=== PATIENT | female | born 1950 | race Caucasian/White ===

== ENCOUNTER → 2016-09-29 | Outpatient (CLI) | payer BC ==
[~2016-09-29] MED LIST: ASCO1CAP3 PO; CALC625T13 PO; CHOL100010 PO; CYAN10005 PO; DOCU100C PO; FEBU80TA PO; FLV400 PO; HYDR-5688 PO; IRON PO; LEVO112T4 PO; MAGN1TAB19 PO; POTA-327 PO; SERT50TA PO; SIMV10TA5 PO; THIA100T11 PO
[2016-09-29 12:21] LABS: MEAN CELL VOLUME 88.7 fL (80-100); MEAN CORPUSCULAR HEMOGLOBIN 29.1 pg (25-34); MEAN CORPUSCULAR HGB CONC 32.8 g/dl (32-36); MEAN PLATELET VOLUME 8.7 fL (7.4-10.4); PLATELET COUNT 214 K/uL (130-400); RED BLOOD COUNT 4.06 M/uL (4.2-5.4); WHITE BLOOD COUNT 3.94 K/uL (4.8-10.8)
[2016-09-29 12:39] LABS: BLOOD UREA NITROGEN 15 mg/dl (7-18); BUN/CREATININE RATIO 16.6 (10-20); CARBON DIOXIDE 26 mmol/L (21-32); CHLORIDE 107 mmol/L (98-107); CREATININE 0.91 mg/dl (0.60-1.20); GLUCOSE 92 mg/dl (70-99); SODIUM 143 mmol/L (136-145)
[2016-09-29 12:40] LABS: PHOSPHORUS 3.6 mg/dl (2.5-4.9)
== END | disposition home or self-care (01) ==
LOC: C.LABBFT 09:31
PROVIDERS: ATTEND Internal Medicine Nephrology
DX: I12.9 Hypertensive chronic kidney disease with stage 1 through stage 4 chronic kidney disease, or unspecified chronic kidney disease (principal); N18.3 Chronic kidney disease, stage 3 (moderate); R31.9 Hematuria, unspecified; N20.0 Calculus of kidney; E55.9 Vitamin D deficiency, unspecified

== ENCOUNTER → 2016-10-09 | Outpatient (CLI) | payer BC ==
[2016-10-09 11:02] LABS: MANUAL MICROSCOPIC REQUIRED? NO; URINE APPEARANCE CLEAR (CLEAR); URINE BILIRUBIN NEG (NEG); URINE COLOR YELLOW; URINE NITRITE NEG (NEG); URINE PH 5.5 (4.5-7.5); UROBILINOGEN NEG (NEG)
[2016-10-09 11:07] LABS: REVIEW REQ? NO
[2016-10-09 11:08] LABS: ZZUR CULT IF INDIC CLEAN CATCH NO
[2016-10-09 11:28] LABS: URINE PROTIEN/CREAT RATIO 0.1 (0-0.2); URINE TOTAL PROTEIN 11.2 mg/dl (0-11.9)
== END | disposition home or self-care (01) ==
LOC: C.LABSPEC 14:45
PROVIDERS: ATTEND Internal Medicine Nephrology
DX: I12.9 Hypertensive chronic kidney disease with stage 1 through stage 4 chronic kidney disease, or unspecified chronic kidney disease (principal); N18.3 Chronic kidney disease, stage 3 (moderate); R31.9 Hematuria, unspecified; N20.0 Calculus of kidney; E55.9 Vitamin D deficiency, unspecified

== ENCOUNTER → 2016-10-24 | Outpatient (CLI) | payer BC | END | disposition home or self-care (01) | LOC: C.MAMM 10:08 | PROVIDERS: ATTEND Family Medicine | DX: M79.605 Pain in left leg (principal); M10.9 Gout, unspecified; N20.0 Calculus of kidney; M85.88 Other specified disorders of bone density and structure, other site; M81.0 Age-related osteoporosis without current pathological fracture ==

== ENCOUNTER → 2017-01-05 | Outpatient (CLI) | payer BC ==
[2017-01-05 13:07] VITALS: BP 90/56; PULSE 72; TEMP 36.7; O2SAT 99
--- NOTE | 2017-01-05 16:33 | Radiation Oncology Follow-Up ---
Radiation Oncology Follow-Up Date of Visit January 05, 2017. 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 External beam treatment completed 05/26/2016 received 4500 cGy 3 HDR treatments at 400 cGy each completed 05/31/2016 Last Edited By: Masha Hernadez on May 16:32 History of Present Illness Ms. Matos is a 66-year-old female who is status post aortic valve replacement in 2009 at the [facility] for aortic stenosis. She suffered from obesity weighing over 400 pounds. She subsequently underwent a gastric bypass in 2013 and from the surgery dieting and post surgery dieting has lost over 200 pounds. The patient's periods stopped in 1999. More recently she started to have postmenopausal bleeding starting in March 2015. She was seen by Dr. Kinney at that time and had a transvaginal ultrasound on 04/16/2015. This showed a 7 mm endometrial stripe which was felt to be abnormally Ellis for postmenopausal female. In the office the attempted an endometrial biopsy but was unable to perform the procedure due to cervical stenosis. Dr. Kinney therefore planned for a EUA with D&C performed on 06/10/2015. This showed benign endocervical mucosa with no endometrial tissue identified and was negative for dysplasia and carcinoma. A second sample showed complex atypical endometrial hyperplasia without dysplasia or carcinoma. Case: [id number]. Patient was subsequently seen by Dr. Mejia in June 2015. He was discussing the possibility of a laparoscopic hysterectomy. However patient developed possible kidney stones and on 07/23/2015 CT scan of the abdomen and pelvis revealed a 5 mm right mid ureteral calculus resulting in mild right hydroureteronephrosis with moderate perinephric infiltration. There was bilateral nephrolithiasis and changes from the previous gastric bypass. The patient returned to see Dr. Mejia in October 2015. At that time without a diagnosis of cancer he was considering placing an IUD but was unable to do so in the office. He has suggested consideration of placement under anesthesia. However the patient returned to [place] where she was seen by Dr. Alvarado in December 2015. She suggested a second opinion and the patient was seen in referral by Dr. Cavazos. She was seen on 01/29/2016 in referral. He was concerned about the increased risk of an occult endometrial cancer and recommended removal of the uterus, tubes, ovaries and regional nodes if possible. The patient agreed and on 2015 underwent a robotic-assisted laparoscopic hysterectomy with bilateral salpingo-oophorectomy. Pathology confirmed an endometrioid adenocarcinoma FIGO grade 1. No definite mass or polyp was noted in the hysterectomy specimen. However microscopic examination of the entire endometrium revealed diffusely infiltrative endometrioid glands with focal cribriform formation in a background of complex atypical hyperplasia. The tumor invaded greater than 50% of the myometrium extending 9 mm through a myometrial thickness of 1.2 cm. There was evidence of focal lymphovascular invasion. There was no cervical involvement and no involvement of the right and left ovary or right and left fallopian tube. The final pathologic staging was therefore pT1B pNx FIGO grade 1. There was no loss of nuclear expression of the MMR proteins with a low probability of microsatellite instability. Patient has recovered well from her surgery. She did develop some postoperative abdominal pain. A CT scan from February 21 showed moderate mesenteric infiltration associated with small bowel loops within the left mid abdomen and a swirling appearance of the mesentery raising the possibility of an internal hernia status post gastric bypass. On 03/11/2016 she underwent a laparoscopic surgery at [facility] to repair a hernia in the small bowel. These symptoms have improved following surgery. Dr. Cavazos had arranged for us to see Ms. Matos in referral to discuss the role of adjuvant radiation. She completed radiation therapy 05/26/2016 with external beam treatments. She received 4500 cGy. She then completed a total 3 high-dose treatments at 400 cGy each. These were completed 05/31/2016. Interim History She's been doing well opacity 6 months. She denies any vaginal discharge or irritation. She's had no change in urination or bowel movements. She previously had difficulty with diarrhea following the treatment. This resolved without difficulty. She also had fatigue. She steadily improving 7 regards to her energy levels. She has had a problem with depression. She was started on Zoloft in September. The dosage has been adjusted. This has affected her energy levels also. She has a known history of iron deficiency anemia. She is currently at 45 mg a day. She stated if she uses higher doses she has constipation. She has had a mild rash under the panniculus. She's been using [id number] powder and wanted to have that checked today in case she needed a prescriptive medication. Allergies Coded Allergies: Allopurinol (Verified Allergy, Intermediate, DRUG FEVER?, 07/14/16) Ciprofloxacin (Verified Allergy, Intermediate, DRUG FEVER?, 07/14/16) Nitrofurantoin (Verified Allergy, Intermediate, RASH,NAUSEA, 07/14/16) Sulfa Antibiotics (Verified Allergy, Intermediate, RASH, NAUSEA, 07/14/16) Amoxicillin (Verified Allergy, Unknown, per PCP note, 07/14/16) Cephalexin (Verified Adverse Reaction, Mild, nausea, 07/14/16) Clindamycin (Verified Adverse Reaction, Unknown, G I UPSET, 07/14/16) Oxycodone (Verified Adverse Reaction, Unknown, HALLUCINATION, 07/14/16) Home Medications Scheduled Ascorbic Acid (Vitamin C), 1 CAP PO DAILY AT LUNCH Calcium Polycarbophil (Fiber Tabs), 2 TAB PO BID Cholecalciferol (Vitamin D), 2,000 INTER.UNIT PO DAILY AT LUNCH Cyanocobalamin (Vitamin B-12), 1,000 MCG PO DAILY AT LUNCH Docusate Sodium (Stool Softener), 1 CAP PO QAM Febuxostat (Uloric), 1 TAB PO QAM Folic Acid (Folic Acid), 800 MCG PO DAILY AT LUNCH Levothyroxine Sodium (Levothyroxine Sodium), 1 TAB PO QAM Magnesium Oxide (Mg Supplement (Magnesium Oxide), 400 MG PO DAILY AT LUNCH Potassium Ext Rel (Klor-Con), 10 MEQ PO QAM Sertraline (Zoloft), 1 TAB PO HS Simvastatin (Zocor), 10 MG PO QPM Thiamine Hcl (Vitamin B-1), 100 MG PO DAILY AT LUNCH [Iron ], 45 MG PO DAILY AT LUNCH Review of Systems Gastrointestinal: Symptoms: WNL GI Comments: Daily Stool Softener Oral: Symptoms: No Problems Respiratory: Symptoms: WNL Urinary: Symptoms: WNL Comments: Currently doctoring for bilateral multiple kidney stones;3 voids/ night Skin: Symptoms: No Problems Other Skin Symptoms: See below notations; Physical Exam Vital Signs Date Time Temp Pulse Resp B/P Pulse Ox O2 Delivery O2 Flow Rate FiO2 01/05/17 13:07 36.7 72 16 90/56 99 Fatigue: None General Appearance: no apparent distress Eyes: normal inspection, EOMI ENT: normal ENT inspection, hearing grossly normal Respiratory/Chest: lungs clear, no respiratory distress Cardiovascular: regular rate, rhythm, no gallop, + systolic murmur (2/ 6 heard best at the aortic area.) Abdomen: non tender, soft, + pertinent finding (large panniculus. The well- demarcated area of erythema in the groin appears dry. Pallor is in place. There is no current areas that are open.) Genitourinary - Female: Normal external genitalia. Vaginal examination reveals no visible lesions of the vagina. Bimanual examination reveals no palpable lesions of the vagina. No tenderness or palpable masses of the lower quadrants. There is no vaginal discharge or irritation. There is no telangiectasia or induration of the vagina. Anal / Rectum: Normal sphincter tone. No rectal masses no rectal bleeding. Extremities: no pedal edema Neurologic/Psychiatric: no motor/sensory deficits, alert, normal mood/affect Skin: warm/dry Laboratory Studies Test 10/09/16 08:47 Urine Color YELLOW Urine Appearance CLEAR (CLEAR) Urine pH 5.5 (4.5-7.5) Urine Specific [place] 1.020 (1.000-1.030) Urine Protein NEG (NEG) Urine Glucose (UA) NEG (NEG) Urine Ketones NEG (NEG) Urine Occult Blood NEG (NEG) Urine Nitrite NEG (NEG) Urine Bilirubin NEG (NEG) Urine Urobilinogen NEG (NEG) Urine Leukocyte Esterase NEG (NEG) Urine Random Creatinine 99.0 mg/dl Urine Random Total Protein 11.2 mg/dl (0-11.9) Urine Protein/Creatinine Ratio 0.1 (0-0.2) Assessment & Plan Plan: Continue regular follow-up with her primary care physician. She will use [id number] powder which is working well for the skin irritation of the panniculus. She will be seeing Dr. Cavazos 02/20/2017. She also plans to continue follow-up with Dr. Alvarado. We asked her to return to our office in 1 year. She may call if she has any questions or concerns in the interim. Total Time In Follow-Up I spent 20 minutes speaking to the patient and performing examination. I spent 15 minutes reviewing information in completing this note. Copy To Korin Mcneal D.O.; Sharonda Alvarado M.D.; Berny Cavazos M.D.
== END | disposition home or self-care (01) ==
LOC: C.ONC 12:59
PROVIDERS: ATTEND Physician Assistant Medical
DX: Z08 Encounter for follow-up examination after completed treatment for malignant neoplasm (principal); Z92.3 Personal history of irradiation; Z85.42 Personal history of malignant neoplasm of other parts of uterus

== ENCOUNTER → 2017-03-20 | Outpatient (CLI) | payer BC ==
[~2017-03-20] MED LIST changes: -HYDR-5688 PO
--- NOTE | 2017-03-20 13:14 | DIAGNOSTIC IMAGING REPORT ---
KUB HISTORY: 66 years-old Female UNSPECIFIED ABDOMINAL PAIN COMPARISON: KUB 07/14/2017 TECHNIQUE: KUB radiograph FINDINGS: There is a linear 6 mm density within the right midabdomen with adjacent 4 mm foci also seen. This may reflect nephrolithiasis or colonic stool 3. No calculi are seen within the region of the left kidney or ureters. Anastomotic suture material seen within the left abdomen. Cholecystectomy clips are seen. Median sternotomy wires also noted. Bowel gas pattern is nonobstructive. Severe multilevel degenerative changes of the spine are seen. No fracture identified. IMPRESSION: 1. Several linear Densities in the right midabdomen measuring up to 6 mm favor colonic stool debris, however nephrolithiasis could have a similar appearance. No calculi are seen along the course of either ureter. 2. Nonobstructive bowel gas pattern. The above report was generated using voice recognition software. It may contain grammatical, syntax or spelling errors. Electronically signed by: Vicente Nava M.D. 03/20/2017 1:13 PM Dictated Date/Time: 03/20/2017 1:10 PM
== END | disposition home or self-care (01) ==
LOC: C.RAD 12:44
PROVIDERS: ATTEND Family Medicine
DX: R10.9 Unspecified abdominal pain (principal)

== ENCOUNTER → 2017-04-07 | Outpatient (CLI) | payer BC ==
--- NOTE | 2017-04-07 12:34 | DIAGNOSTIC IMAGING REPORT ---
KUB HISTORY: 66 years-old Female acute flank pain with history of kidney stones. COMPARISON: KUB 03/20/2017 TECHNIQUE: KUB radiograph FINDINGS: There are approximately 3 calcifications measuring up to 3 mm within the region of the right kidney suggesting calculi. No ureteral calculi or definite left-sided nephrolithiasis identified. Surgical clips are seen within the right upper abdomen with surgical suture material within the left mid abdomen. Bowel gas pattern is nonobstructive. Severe multilevel degenerative changes of the spine are seen. 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 The bones are mildly demineralized throughout. IMPRESSION: 1. Right-sided nephrolithiasis without evidence of ureteral calculi. 2. Nonobstructive bowel gas pattern. The above report was generated using voice recognition software. It may contain grammatical, syntax or spelling errors. Electronically signed by: Vicente Nava M.D. 04/07/2017 12:33 PM Dictated Date/Time: 04/07/2017 12:27 PM
[2017-04-07 13:16] LABS: URINE APPEARANCE CLEAR (CLEAR); URINE BILIRUBIN NEG (NEG); URINE COLOR YELLOW; URINE EPITHELIAL CELL AUTO 0-5 /lpf (0-5); URINE NITRITE NEG (NEG); URINE SPECIFIC GRAVITY 1.016 (1.000-1.030); UROBILINOGEN NEG (NEG)
[2017-04-07 13:21] LABS: HEMATOCRIT 33.2 % (37-47); MEAN CORPUSCULAR HEMOGLOBIN 29.9 pg (25-34); MEAN CORPUSCULAR HGB CONC 32.8 g/dl (32-36); MEAN PLATELET VOLUME 8.1 fL (7.4-10.4); PLATELET COUNT 284 K/uL (130-400); RED BLOOD COUNT 3.65 M/uL (4.2-5.4); WHITE BLOOD COUNT 2.91 K/uL (4.8-10.8)
[2017-04-07 13:22] LABS: MANUAL MICROSCOPIC REQUIRED? NO; REVIEW REQ? NO
[2017-04-07 14:08] LABS: URINE PROTIEN/CREAT RATIO 0.1 (0-0.2); URINE TOTAL PROTEIN 7.2 mg/dl (0-11.9)
[2017-04-07 14:08] LABS: BLOOD UREA NITROGEN 11 mg/dl (7-18); BUN/CREATININE RATIO 13.4 (10-20); CALCIUM 8.8 mg/dl (8.5-10.1); CARBON DIOXIDE 25 mmol/L (21-32); CHLORIDE 107 mmol/L (98-107); CREATININE 0.79 mg/dl (0.60-1.20); GLUCOSE 96 mg/dl (70-99); PHOSPHORUS 3.6 mg/dl (2.5-4.9); POTASSIUM 4.1 mmol/L (3.5-5.1); SODIUM 138 mmol/L (136-145)
== END | disposition home or self-care (01) ==
LOC: C.RAD 11:34
PROVIDERS: ATTEND Urology
DX: N20.0 Calculus of kidney (principal); I12.9 Hypertensive chronic kidney disease with stage 1 through stage 4 chronic kidney disease, or unspecified chronic kidney disease; N18.3 Chronic kidney disease, stage 3 (moderate); E55.9 Vitamin D deficiency, unspecified

== ENCOUNTER → 2017-05-02 | Outpatient (CLI) | payer BC ==
--- NOTE | 2017-05-04 07:39 | MAMMOGRAPHY REPORT ---
BILATERAL DIGITAL SCREENING MAMMOGRAM WITH CAD: 05/02/2017 CLINICAL HISTORY: Routine screening. Patient has no complaints. TECHNIQUE: Bilateral CC and MLO views were obtained. Current study was also evaluated with a Compute r Aided Detection (CAD) system. COMPARISON: Comparison is made to exams dated: 04/25/2016 mammogram, 04/23/2015 mammogram, 04/16/2014 m ammogram, and 08/23/2011 mammogram - [facility]. BREAST COMPOSITION: There are scattered areas of fibroglandular density in both breasts. FINDINGS: There are scattered stable benign-appearing round microcalcifications bilaterally. No susp icious mass, architectural distortion or cluster of microcalcifications is seen. IMPRESSION: ACR BI-RADS CATEGORY 1: NEGATIVE There is no mammographic evidence of malignancy. A 1 year screening mammogram is recommended. The pa tient will receive written notification of the results. Approximately 10% of breast cancers are not detected with mammography. A negative mammographic report should not delay biopsy if a clinically suggestive mass is present. Chelsey Green M.D. ay/:05/02/2017 10:29:39 Remedial Project Manager: Elsa Luna RT(R)(M)(BD), [facility] letter sent: Normal 1/2 BI-RADS Code: ACR BI-RADS Category 1: Negative
== END | disposition home or self-care (01) ==
LOC: C.MAMM 09:42
PROVIDERS: ATTEND Obstetrics & Gynecology
DX: Z12.31 Encounter for screening mammogram for malignant neoplasm of breast (principal)

== ENCOUNTER → 2017-12-15 | Outpatient (CLI) | payer BC ==
[2017-12-15 10:08] LABS: BASO % 0.7 %; BASO ABS # 0.03 K/uL (0-0.2); EOS % 2.2 %; EOS ABS # 0.09 K/uL (0-0.5); HEMATOCRIT 36.8 % (37-47); HEMOGLOBIN 12.1 g/dL (12.0-16.0); IG# 0.01 K/uL (0.00-0.02); LYMPH % 24.4 %; LYMPH ABS # 0.98 K/uL (1.2-3.4); MEAN CELL VOLUME 90.4 fL (80-100); MEAN CORPUSCULAR HEMOGLOBIN 29.7 pg (25-34); MEAN CORPUSCULAR HGB CONC 32.9 g/dl (32-36); NEUT % 62.5 %; NEUT ABS # 2.51 K/uL (1.4-6.5); PLATELET COUNT 198 K/uL (130-400); RED CELL DISTRIBUTION WIDTH CV 12.7 % (11.5-14.5); RED CELL DISTRIBUTION WIDTH SD 41.7 fL (36.4-46.3); WHITE BLOOD COUNT 4.02 K/uL (4.8-10.8)
[2017-12-15 10:34] LABS: ALBUMIN 3.1 gm/dl (3.4-5.0); ALT/SGPT 21 U/L (12-78); AST/SGOT 20 U/L (15-37); BLOOD UREA NITROGEN 22 mg/dl (7-18); CALCIUM 9.3 mg/dl (8.5-10.1); CARBON DIOXIDE 29 mmol/L (21-32); GLUCOSE 113 mg/dl (70-99); POTASSIUM 4.1 mmol/L (3.5-5.1); SODIUM 139 mmol/L (136-145)
[2017-12-15 10:44] LABS: ALKALINE PHOSPHATASE 80 U/L (45-117); TOTAL PROTEIN 6.2 gm/dl (6.4-8.2)
--- NOTE | 2017-12-15 10:51 | DIAGNOSTIC IMAGING REPORT ---
ULTRASOUND OF THE CAROTID ARTERIES CLINICAL HISTORY: G45.3 AMAUROSIS FUGAX COMPARISON STUDY: None. TECHNIQUE: Real-time, grayscale, and color Doppler sonography of the carotid arteries was performed. Imaging reviewed in the transverse and longitudinal planes. NASCET criteria was utilized for stenosis calcification. FINDINGS: There is minor atherosclerotic plaque present . The peak systolic velocity within the right internal carotid artery is 117 cm/sec. The systolic velocity ratio of right internal to common carotid artery is 1.6. The peak systolic velocity within the left internal carotid artery is 85 cm/sec. The systolic velocity ratio left internal to common carotid artery is 1. Antegrade flow is seen in the vertebral arteries. The external carotid arteries are patent. Blood pressure in the right arm measured 107 mm/Hg. Blood pressure in the left arm measured 94 mm/Hg. IMPRESSION: No evidence of hemodynamically significant carotid stenosis. Electronically signed by: Jaspal Richardson M.D. 12/15/2017 10:50 AM Dictated Date/Time: 12/15/2017 10:49 AM
== END | disposition home or self-care (01) ==
LOC: C.ULTR 09:23
PROVIDERS: ATTEND Family Medicine
DX: M65.30 Trigger finger, unspecified finger (principal); M1A.9XX0 Chronic gout, unspecified, without tophus (tophi); M53.3 Sacrococcygeal disorders, not elsewhere classified; L85.9 Epidermal thickening, unspecified; N18.9 Chronic kidney disease, unspecified; E03.9 Hypothyroidism, unspecified; G45.3 Amaurosis fugax

== ENCOUNTER → 2018-01-01 | Outpatient (CLI) | payer BC ==
[2018-01-01 12:09] LABS: HEMATOCRIT 37.8 % (37-47); HEMOGLOBIN 12.7 g/dL (12.0-16.0); MEAN CELL VOLUME 89.2 fL (80-100); MEAN CORPUSCULAR HGB CONC 33.6 g/dl (32-36); MEAN PLATELET VOLUME 8.1 fL (7.4-10.4); PLATELET COUNT 222 K/uL (130-400); RED CELL DISTRIBUTION WIDTH CV 12.6 % (11.5-14.5); RED CELL DISTRIBUTION WIDTH SD 40.9 fL (36.4-46.3); WHITE BLOOD COUNT 3.58 K/uL (4.8-10.8)
[2018-01-01 12:22] LABS: ALBUMIN 3.6 gm/dl (3.4-5.0); AST/SGOT 25 U/L (15-37); BLOOD UREA NITROGEN 13 mg/dl (7-18); CARBON DIOXIDE 32 mmol/L (21-32); CREATININE 1.06 mg/dl (0.60-1.20); GLUCOSE 116 mg/dl (70-99); SODIUM 139 mmol/L (136-145)
[2018-01-01 12:25] LABS: ALKALINE PHOSPHATASE 86 U/L (45-117); ALT/SGPT 27 U/L (12-78); TOTAL PROTEIN 6.8 gm/dl (6.4-8.2); URIC ACID 3.8 mg/dl (2.6-7.2)
== END | disposition home or self-care (01) ==
LOC: C.LAB 10:23
PROVIDERS: ATTEND Internal Medicine Nephrology
DX: I12.9 Hypertensive chronic kidney disease with stage 1 through stage 4 chronic kidney disease, or unspecified chronic kidney disease (principal); N18.3 Chronic kidney disease, stage 3 (moderate); D64.9 Anemia, unspecified; N20.0 Calculus of kidney; R31.29 Other microscopic hematuria; E55.9 Vitamin D deficiency, unspecified

== ENCOUNTER → 2018-03-22 | Outpatient (CLI) | payer BC ==
[~2018-03-22] MED LIST changes: -ASCO1CAP3 PO; -CALC625T13 PO; -SIMV10TA5 PO; -THIA100T11 PO
[2018-03-22 14:27] LABS: HEMATOCRIT 34.4 % (37-47); HEMOGLOBIN 11.3 g/dL (12.0-16.0); MEAN CELL VOLUME 88.2 fL (80-100); MEAN CORPUSCULAR HGB CONC 32.8 g/dl (32-36); MEAN PLATELET VOLUME 8.1 fL (7.4-10.4); PLATELET COUNT 212 K/uL (130-400); RED CELL DISTRIBUTION WIDTH CV 12.6 % (11.5-14.5); RED CELL DISTRIBUTION WIDTH SD 40.6 fL (36.4-46.3); WHITE BLOOD COUNT 3.97 K/uL (4.8-10.8)
[2018-03-22 14:35] LABS: BLOOD UREA NITROGEN 14 mg/dl (7-18); CALCIUM 8.9 mg/dl (8.5-10.1); CARBON DIOXIDE 27 mmol/L (21-32); CREATININE 0.95 mg/dl (0.60-1.20); GLUCOSE 107 mg/dl (70-99); POTASSIUM 4.5 mmol/L (3.5-5.1); SODIUM 135 mmol/L (136-145)
== END | disposition home or self-care (01) ==
LOC: C.CPL 07:06
PROVIDERS: ATTEND Orthopaedic Surgery
DX: Z01.812 Encounter for preprocedural laboratory examination (principal); Z85.42 Personal history of malignant neoplasm of other parts of uterus; Z01.810 Encounter for preprocedural cardiovascular examination

== ENCOUNTER → 2018-04-01 | Outpatient (CLI) | payer BC ==
--- NOTE | 2018-04-01 14:03 | DIAGNOSTIC IMAGING REPORT ---
KUB CLINICAL HISTORY: MICROSCOPIC HEMATURIA nephrocalcinosis COMPARISON STUDY: 04/07/2017 FINDINGS: Several small lower pole right renal calcifications unchanged. No new or interval calcifications. Nonobstructive bowel pattern. Degenerative change of the lumbar spine and bony pelvis. IMPRESSION: Unchanged lower pole right renal calcifications. Nonobstructive bowel pattern. No significant change from the prior study. The above report was generated using voice recognition software. It may contain grammatical, syntax or spelling errors. Electronically signed by: Saleem Michaels M.D. 04/01/2018 2:02 PM Dictated Date/Time: 04/01/2018 2:00 PM
== END | disposition home or self-care (01) ==
LOC: C.RAD 13:36
PROVIDERS: ATTEND Urology
DX: N20.0 Calculus of kidney (principal)

== ENCOUNTER → 2018-04-09 | Day surgery (SDC) | payer BC ==
[2018-03-06 14:13] VITALS: BMI 42.0
--- NOTE | 2018-03-22 10:05 | PAT Medication Instructions ---
Service Date Mar 22, 2018. Current Home Medication List Cholecalciferol (Vitamin D), 2,000 INTER.UNIT PO DAILY AT LUNCH Cyanocobalamin (Vitamin B-12), 1,000 MCG PO DAILY AT LUNCH Docusate Sodium (Stool Softener), 1 CAP PO QAM Febuxostat (Uloric), 1 TAB PO QAM Folic Acid (Folic Acid), 800 MCG PO DAILY AT LUNCH Levothyroxine Sodium (Levothyroxine Sodium), 1 TAB PO QAM Magnesium Oxide (Mg Supplement (Magnesium Oxide), 400 MG PO DAILY AT LUNCH Potassium Ext Rel (Klor-Con), 10 MEQ PO QAM Sertraline (Zoloft), 0.5 TAB PO QPM [Iron ], 45 MG PO DAILY AT LUNCH Medication Instructions For Your Scheduled Surgery - Hold the following medications the morning of surgery: [Iron ], 45 MG PO DAILY AT LUNCH Magnesium Oxide (Mg Supplement (Magnesium Oxide), 400 MG PO DAILY AT LUNCH Potassium Ext Rel (Klor-Con), 10 MEQ PO QAM Febuxostat (Uloric), 1 TAB PO QAM Folic Acid (Folic Acid), 800 MCG PO DAILY AT LUNCH Cholecalciferol (Vitamin D), 2,000 INTER.UNIT PO DAILY AT LUNCH Cyanocobalamin (Vitamin B-12), 1,000 MCG PO DAILY AT LUNCH Docusate Sodium (Stool Softener), 1 CAP PO QAM - Take the following medications the morning of surgery with a sip of water: Levothyroxine Sodium (Levothyroxine Sodium), 1 TAB PO QAM - Take the following medications as scheduled the night before surgery: Sertraline (Zoloft), 0.5 TAB PO QPM If you have any questions please call us at [phone] or [phone] or [phone]
[2018-03-22 13:11] VITALS: Ht 154.9 cm; Wt 101.9 kg
[~2018-04-09] VITALS: Ht 154.9 cm; Wt 101.9 kg
[~2018-04-09] MED LIST changes: +ATROPINE SULFATE 0.1 MG/ML 5ML SYR IV PRN; +BUPIVACAINE 0.5 % 5 MG/1 ML PF 10ML VIAL ONE; +BUPIVACAINE/EPINEPHRINE 0.5% MPF 1:200,000 30 ML VIAL ONE; +CEFAZOLIN 2000MG IV PUSH 15 ML IV SCH; +CEFAZOLIN SOD 2000MG/15 ML IV PUSH ONE; +EpHEDrine SULFATE INJ 50 MG/ML AMP IV PRN; +FENTANYL CITRATE INJ 50 MCG/1 ML 2 ML VIAL IV PRN; +FENTANYL CITRATE INJ 50 MCG/1 ML 2 ML VIAL ONE; +FLUMAZENIL 0.1 MG/1 ML 10 ML VIAL IV ONE; +LACTATED RINGER'S 1000ML 1,000 ML IV SCH; +LIDOCAINE HCL 1% 20 ML VIAL ONE; +LIDOCAINE HCL 2% 2 ML VIAL (20MG/ML) ONE; +METOCLOPRAMIDE HCL INJ 5 MG/ML 2 ML VIAL IV PRN; +MIDAZOLAM HCL 1 MG/ML 2ML VIAL ONE; +NURSING VERBAL MED ORDER ONE; +ONDANSETRON INJ 2 MG/ML 2 ML VIAL IV PRN; +ONDANSETRON INJ 2 MG/ML 2 ML VIAL ONE; +PROPOFOL IV EMULSION 10 MG/ML 20 ML VIAL ONE; +SODIUM CHLORIDE 0.9% 1000ML 1,000 ML IV SCH; +TRAMADOL HCL 50 MG TAB PO PRN
--- NOTE | 2018-04-09 12:51 | History & Physical Bridge - SC ---
H&P Re-Evaluation Bridge Note: I have examined the patient, reviewed the History & Physical and in the interval since the performance of the History & Physical I have noted the following changes of clinical significance: No changes noted
--- NOTE | 2018-04-09 13:46 | [facility] Post Operative Brief Note ---
Immediate Operative Summary Operative Date Apr 09, 2018. Pre-Operative Diagnosis Right long and ring triggered fingers Post-Operative Diagnosis Right long and ring triggered fingers Procedure(s) Performed Right Long And Ring Trigger Finger Releases Surgeon Dr. Chandler Cortez Ladle Handler Surgeon(s) Mario Bassett PA-C Estimated Blood Loss 1ml Findings Consistent with Post-Op Diagnosis Fluids (cc crystalloids) 400 cc Specimens None per surgeon Drains None Anesthesia Type MAC Complication(s) none Disposition Accompanied Pt To Recover: no Disposition: Recovery Room / PACU
--- NOTE | 2018-04-09 13:49 | [facility] Operative Report ---
Operative Report Operative Date Apr 09, 2018. Pre-Operative Diagnosis Right long and ring triggered fingers Post-Operative Diagnosis Right long and ring triggered fingers Procedure(s) Performed Right Long And Ring Trigger Finger Releases Surgeon Dr. Chandler Cortez Home Care Rn Surgeon(s) Mario Bassett PA-C Estimated Blood Loss 1ml Fluids 400 cc Specimens None per surgeon Drains None Anesthesia Type MAC Complication(s) none Disposition no Recovery Room / PACU Description of Procedure I was present during the entire case and assisted with wound closure and dressing application. Please see Dr. Cortez procdured notes for specifics of the case. I attest to the content of the Intraoperative Record and any orders documented therein. Any exceptions are noted below.
[2018-04-09 13:51] VITALS: TEMP 36.8
--- NOTE | 2018-04-09 13:52 | Discharge Instructions ---
Discharge Instructions Date of Service Apr 09, 2018. Admission Reason for Admission: Right Long And Ring Triffer Fingers Discharge Discharge Diagnosis / Problem: Right long and ring trigger digits Discharge Goals Goal(s): Decrease discomfort, Improve function, Increase independence Activity Recommendations Activity Limitations: as noted below Lifting Limitations: none Exercise/Sports Limitations: none May Resume Sexual Activity: when tolerated Shower/Bathe: tomorrow, keep incision dry Driving or Machine Use: resume 3 days after discharge Weightbearing Status: Right weightbearing (as tolerated) . Instructions / Follow-Up Instructions / Follow-Up Post-operative Instructions Dear Patient and Family/Friends, Before you are discharged from the hospital, it is important to know what to expect when you get home after surgery. To that end, we have created this sheet of discharge instructions which covers many commonly asked questions. Make sure you go through this sheet in its entirety with your nurse before you are discharged. Please note that we will go over the specifics of your surgery and recovery when you return for your first post-operative visit. Sincerely, Dr. Cortez Pain Expect to be in a fair amount of pain after surgery. Remember, our goal is not to eliminate your pain, but to make it tolerable. It is a good idea to stay ahead of your pain by taking the medications you were prescribed once you get home. Typically, the pain starts improving 3-7 days after surgery. You should start weaning off the narcotic pain medication (oxycodone, hydrocodone, hydromorphone, morphine) as soon as your pain improves. Please call our office if your pain is not adequately controlled. Ice Ice your operative site at least 5 times a day for 15-30 minutes at a time. Make sure you have a thin cloth between the ice or cooling unit and your skin to prevent mendoza bite. This is especially important if you received a nerve block. Continue icing your operative site for the first 5-7 days after surgery , then as needed. Diet/Nausea/Vomiting Start by drinking clear liquids and eating crackers. If you can tolerate this, then you may resume your normal diet. If you feel nauseated or vomit, take Zofran/ondansetron (if prescribed). Please call our office if you have intractable nausea or vomiting, or, if after hours, you may go to the Emergency Room for help. Constipation Constipation is a common side effect of narcotic pain medication. If you have not had a bowel movement within 2 days after surgery, we recommend purchasing an over the counter laxative such as Milk of Magnesia, Dulcolax, or Miralax from a local pharmacy, and taking it as instructed. Call our clinic if any questions. Weight bearing and Range of Motion. Do not bear any weight through your operative extremity immediately after surgery. If you had upper extremity surgery, do not lift anything with that arm. If you are in a knee brace, keep it locked in place until your follow-up. We will discuss your weight bearing, range of motion, and lifting restrictions in detail at your first post-operative appointment. Continuous Passive Motion (CPM) Machine If you were prescribed a CPM machine, it will start after your first post- operative appointment, at which time we will give you instructions on the range of motion settings and duration of treatment Physical therapy You will be given a prescription for physical therapy or occupational therapy at your first post-operative appointment. Typically, patients start therapy within 1 week of surgery Wound care and showering We will inspect your wound at your first post-operative visit, and may do a dressing change at that time. Most patients will be in a water-proof dressing that is removed 14 days after surgery. It is normal to see some dried blood on the dressing. Do not remove your dressing, paper strips or sutures yourself unless you are given permission. Showering is allowed the day after surgery. Do not scrub or remove any dressings. The wound should not be submerged underwater (i.e. in a bathtub or pool) until 4 weeks after surgery MIMI stockings If you were given white stockings, these are to be worn at all times except to shower (on both legs) for the first 2 weeks after surgery. Driving You may not drive while taking narcotic pain medication or while in a cast, splint, sling or brace. You, the patient, need to make the final determination about when you are safe to drive, however, the earliest you may consider driving after surgery is below: Hand/Wrist/Elbow Surgery: 3 days Shoulder Surgery: 2 weeks Hip,/Knee/Ankle Surgery: 4 weeks Fracture repair: 6 weeks Return to Work Your return to work depends on what surgery was done and what type of work you do. Please bring any paperwork your employer needs completed to your first post -operative visit. Also, bring a description of your job duties, as this helps us to understand what risks you may face at work. Travel Avoid long distance travel (greater than 1 hour) in airplanes and cars for the first 6 weeks after surgery. If you must travel, you need to have a Doppler ultrasound done before you travel to rule out a blood clot in your legs. Follow-up You should have a follow-up appointment already scheduled 1-2 days after surgery. If not, please contact our office to make this appointment before you leave the hospital. When to call the office It is normal to have swelling and bruising in the limb that was operated on. This will improve with time. It is also normal to have fevers for the first 2 days after surgery. Reasons you should call your doctor include: Uncontrolled pain; Nausea, vomiting, or constipation that does not improve with medication; Fevers over 101.5, chills, sweats; Drainage or bleeding from the wound; Foul odor; Spreading areas of redness; Any other concerns Current Hospital Diet Patient's current hospital diet: Discharge Diet Recommended Diet: Regular Diet Procedures Procedures Performed: Right Long And Ring Trigger Finger Releases Pending Studies Studies pending at discharge: no Medical Emergencies . Who to Call and When: Medical Emergencies: If at any time you feel your situation is an emergency, please call 911 immediately. . Non-Emergent Contact Non-Emergency issues call your: Primary Care Provider Call Non-Emergent contact if: you have a fever, temperature is above 101.5, your pain is not controlled, your pain is worsening, wound has increased drainage, you have any medication questions . "Provider Documentation" section prepared by Mario Bassett. . [place] Drug Monitoring Program Search Results: patient reviewed within database, no issues identified, see additional documentation
[2018-04-09 14:11] VITALS: BP 110/63; PULSE 65; O2SAT 99
--- NOTE | 2018-04-09 14:15 | Anesthesia Progress Nt - [facility] ---
Anesthesia Post Op Note Date & Time Apr 09, 2018 at 14:14 Vital Signs Pain Intensity: 0 Vital Signs Past 12 Hours Date Time Temp Pulse Resp B/P (MAP) Pulse Ox O2 Delivery O2 Flow Rate FiO2 04/09/18 14:11 65 20 110/63 (79) 99 Room Air 04/09/18 13:51 36.8 78 16 100/53 (69) 96 Room Air 04/09/18 12:04 36.2 78 20 117/69 (85) 97 Room Air Notes Mental Status: alert / awake / arousable, participated in evaluation Nausea / Vomiting: adequately controlled Pain: adequately controlled Airway Patency, RR, SpO2: stable & adequate BP & HR: stable & adequate Hydration State: stable & adequate Anesthetic Complications: no major complications apparent
--- NOTE | 2018-04-09 14:36 | OPERATIVE REPORT ---
DATE OF OPERATION: 04/09/2018 PREOPERATIVE DIAGNOSIS: Trigger fingers, right long and ring fingers. POSTOPERATIVE DIAGNOSIS: Trigger fingers, right long and ring fingers. OPERATIONS PERFORMED: Right long and ring finger trigger finger releases. SURGEON: Chandler Cortez MD AUTO LEASING MANAGER: Cindy Bassett. ESTIMATED BLOOD LOSS: 1 mL. IV FLUIDS: 400 mL crystalloid. SPECIMENS: None. COMPLICATIONS: None. IMPLANTS: None. INDICATIONS: Ms. Matos is a very pleasant 67-year-old female who has had triggering in her fingers for several months. She has seen another provider in the past and had corticosteroid injections which have failed to relieve her symptoms. She also has triggering in her thumb as well as CMC joint arthritis, but her long and ring fingers are the most symptomatic for her. To the point now where she is even having trouble flexing her fingers. We had a long discussion about treatment options, risks and benefits of surgery, alternatives to surgery and expected outcomes. After reviewing all these, she elected to proceed with surgery. All questions were answered. Informed consent was signed. OPERATIVE FINDINGS: The A1 raffaele of the long and ring fingers were released. Under anesthesia, the patient was able to actively flex her fingers with no longer experiencing any triggering. DESCRIPTION OF PROCEDURE: The patient was identified in the preoperative holding area where her surgical sites were marked. She was brought back to the main operating room where she was placed on the operating room table and a timeout was called. After the timeout was performed, intravenous sedation was administered and the surgical sites were injected with a 1:1 mixture of 1% lidocaine and 0.5% Marcaine with epinephrine. A total of 3 mL was used. The arm was then prepped and draped in normal sterile fashion. Prior to incision, another timeout was called. All in the room were in agreement. We began by exsanguinating the limb with an Esmarch bandage. Tourniquet was inflated to 250 mmHg. We started by performing the long trigger finger release. An oblique incision was made directly overlying the A1 raffaele of the long finger. We dissected down through subcutaneous tissues to the level of the raffaele. We dissected on each side of the flexor tendon. Matteo rakes were placed. Ragnell retractor was used as well. Her A1 raffaele was then released. The patient was then asked to actively flex the finger and extend it and there was no longer any triggering. The wound was copiously irrigated. We thenperformed the exact same procedure on the ring finger. At this point, her wounds were closed with 4-0 nylon sutures in interrupted fashion. A Xeroform was placed followed by 2x2, Tegaderm and a compressive dressing. The patient was transferred to the recovery room in stable condition. POSTOPERATIVE COURSE: The patient will follow up in my clinic tomorrow. No DVT prophylaxis is indicated for the small upper extremity joint surgery. She will start immediate active range of motion. I attest to the content of the Intraoperative Record and any orders documented therein. Any exceptions are noted below. VASHTI
== END | disposition home or self-care (01) ==
LOC: X.SURG 11:51
PROVIDERS: ATTEND Orthopaedic Surgery
DX: M65.331 Trigger finger, right middle finger (principal); M65.341 Trigger finger, right ring finger; I10 Essential (primary) hypertension; E11.9 Type 2 diabetes mellitus without complications; F32.9 Major depressive disorder, single episode, unspecified; E66.01 Morbid (severe) obesity due to excess calories; Z68.41 Body mass index [BMI] 40.0-44.9, adult; Z95.2 Presence of prosthetic heart valve; Z98.84 Bariatric surgery status; Z90.710 Acquired absence of both cervix and uterus; Z85.42 Personal history of malignant neoplasm of other parts of uterus